=== PATIENT | male | born 1975 | race Caucasian/White ===

== ENCOUNTER 2020-10-02 08:58 | Emergency (ER) | payer OTHER, SELFPAY ==
[2020-10-02 09:36] VITALS: BP 138/86; PULSE 72; RESP 20; TEMP 37; O2SAT 100
--- NOTE | 2020-10-02 10:16 | ED.EYEPROB ---
HPI - Eye Problem General Chief complaint: Eye Problems Stated complaint: fb in right eye Time Seen by Provider: 10/02/20 10:00 Source: patient and RN notes reviewed Mode of arrival: ambulatory Limitations: no limitations History of Present Illness HPI Narrative: Patient presents today complaining of a possible foreign body to the right eye since yesterday. He is unsure what the foreign body could be. He was doing a ratchet strap when he experienced a foreign body. States the eye was crusted shut this morning. Denies pain to the eye and denies any vision changes. Wears glasses. States the area of the foreign body sensation does not move and is located in the medial eye. MD chief complaint: foreign body Related Data Allergies Allergy/AdvReac Type Severity Reaction Status Date / Time amoxicillin Allergy Unknown Verified 10/02/20 10:08 Penicillins Allergy Unknown Verified 10/02/20 10:08 Review of Systems Review of Systems: Narrative: CONSTITUTIONAL: Denies body aches, fever, chills, or sweats. EYES: Denies visual changes, redness. + Right eye foreign body sensation and crusting ENT: Denies rhinorrhea, congestion, sore throat, or otalgia. CARDIOVASCULAR: Denies chest pain, palpitations, or edema. RESPIRATORY: Denies cough or dyspnea. GASTROINTESTINAL: Denies abdominal pain, nausea, vomiting, or diarrhea. GENITOURINARY: Denies dysuria or hematuria. SKIN: Denies rash, itching, or wounds. MUSCULOSKELETAL: Denies back pain, joint pain, or myalgia. NEUROLOGIC: Denies headache, numbness, tingling, or weakness. PSYCH: Denies depression or anxiety. PMFSH Comments At time of signature, I have reviewed and agree with nursing past medical, surgical, social and family history unless otherwise noted. Please see nursing chart for further information. There is no relevant family history pertinent to the presenting complaint Exam Narrative: Exam Narrative: GENERAL: Well-appearing, well-nourished, and in no acute distress. HEAD: Normocephalic, atraumatic. EYES: EOMI. PERRL. Left eye normal. See procedure note. Conjunctiva erythematous. Lids and lashes normal. No fluorescein uptake. Patient localizes foreign body sensation to the medial eye. No foreign body or abrasion noted. ENT: Mucous membranes pink and moist. NECK: Normal AROM. CHEST: No respiratory distress. EXTREMITIES: Normal range of motion. No edema. SKIN: Warm, dry, no rash. Capillary refill normal. Normal skin turgor. NEURO: No focal deficits. Alert and oriented x3. Gait steady. PSYCH: Normal affect. No signs of depression or anxiety. Course Vital Signs Vital signs: Vital Signs Temperature 98.6 F 10/02/20 09:36 Pulse Rate 72 10/02/20 09:36 Respiratory Rate 20 10/02/20 09:36 Blood Pressure 138/86 10/02/20 09:36 Pulse Oximetry 100 10/02/20 09:36 Temperature 98.6 F 10/02/20 09:36 Pulse Rate 72 10/02/20 09:36 Respiratory Rate 20 10/02/20 09:36 Blood Pressure 138/86 10/02/20 09:36 Pulse Oximetry 100 10/02/20 09:36 Reviewed. Pt has been instructed to follow up with his PCP regarding his elevated blood pressure today. Procedures Other Procedure Procedure 1: Other Procedure: Right eye was anesthetized with 1 drop of tetracaine and anesthesia was achieved. The eye was flushed with eye wash. Lid was inverted and examined. Moistened Qtip was used to sweep underneath the upper eyelid with 0 foreign bodies resulting. Cornea was dyed with fluorescein and 0 abrasions or ulcerations were noted. Pt tolerated procedure well. MDM - Eye Problem Differential Diagnosis Differential diagnosis: Likely corneal abrasion, conjunctivitis and other (Foreign body) Critical Care Time Critical Care Time Critical Care Time: No Discharge Plan Discharge Clinical Impression: Corneal abrasion Qualifiers: Encounter type: initial encounter Laterality: right Qualified Code(s): S05.01XA - Injury of conjunctiva and corneal abrasion witho
== END 2020-10-02 10:30 | disposition home or self-care (01) ==
PROVIDERS: Emergency Provider Nurse Practitioner
DX: S05.01XA Injury of conjunctiva and corneal abrasion without foreign body, right eye, initial encounter (principal); X58.XXXA Exposure to other specified factors, initial encounter
CPT/HCPCS: 99213; A9270; G0463